=== PATIENT | female | born 1965 | race Caucasian/White ===

== ENCOUNTER 2017-11-09 14:10 | Emergency (ER) | payer OTHER, SELFPAY ==
[2017-11-09] MEDS ORDERED: predniSONE 20 MG TAB ONE (14:35)
[2017-11-09] MEDS ORDERED: Acetaminophen/Codeine 30-300mg Tablet ONE (14:35)
== END 2017-11-09 14:44 | disposition home or self-care (01) ==
LOC: NAV ERS 14:10
DX: M25.561 Pain in right knee (principal); I10 Essential (primary) hypertension; Z79.899 Other long term (current) drug therapy
CPT/HCPCS: 99283; J7506